=== PATIENT | male | born 1980 | race Caucasian/White ===

== ENCOUNTER 2017-12-06 21:28 | Emergency (ER) | payer BC ==
[2017-12-06 21:35] VITALS: BP 117/75; BMI 30.7
--- NOTE | 2017-12-06 22:19 | DR.GENAD ---
HPI - PCP Primary Care Physician: - HPI Comment HPI Comment: NO TRAUMA. WORSE TONIGHT. NO DYSURIA OR FEVER. - Complaint/Symptoms Chief Complaint Doctors Comments: RT GROIN PAIN RADIATING TO RT THIGH FOR 2 WEEKS. Chief Complaint:: RIGHT HIP PAIN RADIATES DOWN INTO GROIN AND THIGH. O/S A FEW WEEKS AGO, JUST GETTING WORSE. THE PAIN WAS INTENSE TONIGHT. - Nurses notes reviewed Nurses Notes Review: Yes - Source History Provided: Patient - Mode of Arrival Mode of Arrival: Ambulatory - Timing Onset of Chief Complaint: 11/21/17 Came on: Suddenly - Duration Duration: Constant Duration: Weeks - Severity Severity: Moderate PMH - PMH Past Medical History: Yes Past Medical History: Coronary Artery Disease, Dyslipidemia, NE Past Surgical History: Yes Surgical History: Angioplasty/Stents, Ortho Surgery Past Surgical History Comment: LEFT LEG SURGERY(PLATE AND SCREWS) - Family History History of Family Medical Conditions: No - Social History Does patient currently use any type of tobacco product: Yes Type of Tobacco Use: None Does any household member use tobacco: Yes Alcohol Use: None Do you use any recreational Drugs:: No Lives With: Spouse, Family Lives Where: Home - infectious screening Have you traveled outside the country in the last 6 months?: No Isolation: Standard ROS - Review of Systems Constitutional: No Symptoms Reported. negative: Chills, Fever Eyes: No Symptoms Reported ENTM: No Symptoms Reported. negative: Ear Discharge, Nose Discharge, Nose Congestion, Throat Pain Respiratoy: No Symptoms Reported. negative: Productive Cough, Short of Breath, Wheezing, Hemoptysis Cardiovascular: No Symptoms Reported. negative: Chest Pain Gastrointestinal/Abdominal: No Symptoms Reported. negative: Abdominal Pain, Nausea, Vomiting Genitourinary: Pain (RIGHT SCOTUM). negative: Dysuria, Frequency, Hematuria Neurological: Headache, Weakness, Dizziness Musculoskeletal: No Symptoms Reported, Back Pain, Joint Pain, Muscle Pain Integumentary: No Symptoms Reported Hematologic/Lymphatic: Easy Bruising Endocrine: No Symptoms Reported All Other Systems: Reviewed and Negative PE - Vital Signs Vitals: Temperature 98.0 F Pulse Rate 83 Respiratory Rate 18 Blood Pressure 117/75 O2 Sat by Pulse Oximetry 95 - General Limitations: No Limitations General Appearance: Alert - Head Head Exam: Normal Inspection - Eyes Eye exam: Normal Appearance - ENT ENT Exam: Normal External Ear Exam External Ear Exam: Normal External Inspection TM/Canal Exam: Bilateral Normal Nose Exam: Normal Nose Exam Mouth Exam: Normal Inspection Throat Exam: Tonsillar Erythema - Neck Neck Exam: Trachea Midline - Chest Chest Inspection: Symmetric Chest Wall Rise - Respiratory Respiratory Exam: Normal Lung Sounds Bilat, Accessory Muscle Use Respiratory Exam: Bilateral Clear to Auscultation - Cardiovascular Cardiovascular Exam: Regular Rate, Normal Rhythm, Normal Heart Sounds - Abdominal Exam Abdominal Exam: Normal Bowel Sounds, Soft. negative: Tenderness - Extremities Extremities Exam: Normal Inspection - Back Back Exam: Normal Inspection - Neurologic Neurological Exam: Alert, Oriented X3 - Skin Skin Exam: Normal Color MDM - Additional Information Additional Information Obtained From: Family - Differential Diagnosis Differential Diagnosis: RT TESTICULAR PAIN, TORSIN, HERNIA, STRAIN Course - Treatment Treatment: SEE ORDERS. - Education/Counseling Education/Counseling: Patient, Family, Education Educated On: Diagnosis, Needs for Follow Up ROR - Labs Reviewed Laboratory Results Reviewed?: Yes - XRAY XRAY Interpreted by: Radiologist XRAY Findings: REPORT DISCUSS WITH PATIENT. - Diagnosis Discharge Problem: Epididymitis, Right varicocele, Scrotal swelling Hydrocele Qualifiers: Hydrocele type: unspecified Qualified Code(s): N43.3 - Hydrocele, unspecified - Discharge Plan Disposition: HOME, SELF-CARE Condition: Stable Prescriptions: Ciprofloxacin HCl [CIPRO 500 MG TAB *] 500 mg PO Q12H #28 tab Ibuprofen [MOTRIN TAB 800 MG *] 800 mg PO Q8H PRN #30 tab PRN Reason: Pain/Inflammation - Follow ups/Referrals Follow ups/Referrals: NATTY KOHLER [CONSULTING PHYSICIAN] - 2 days MICHI NAVARRO [STAFF PHYSICIAN] - 2 days [facility],None [Primary Care Provider] - 2 days - Instructions Instructions: Scrotal Swelling, Epididymitis Additional Instructions: RETURN TO ED IF WORSE.
--- NOTE | 2017-12-07 00:28 | US ---
Ultrasound scrotum Indication: Right testicular pain Technique: Dynamic grayscale Doppler imaging through the scrotum. Findings: The right testis measures 3.7 x 2.4 x 2.6 cm. The left testis measures 4.3 x 1.8 x 3.0 cm. Doppler flow is normal. There is right greater than left hydroceles. Few echogenic foci are seen in t he right hydroceles. Few prominent venous structures are seen on the right. Epididymis appears enlarg ed and heterogeneous on the right. Left epididymis appears normal. Impression: 1. Enlarged right epididymis with echogenic reflectors seen in the adjacent hydrocele is compatible w ith acute epididymitis. 2. Dilated veins are concerning for varicoceles. This could be needed inflammation but abdominal lesi on needs to be excluded. Follow-up to document resolution and image the abdomen non emergently to exclude renal lesion. Reported By:
== END 2017-12-07 00:53 | disposition home or self-care (01) ==
LOC: ER 21:28
DX: I86.1 Scrotal varices (principal); N50.89 Other specified disorders of the male genital organs; N43.3 Hydrocele, unspecified
CPT/HCPCS: 76870; 99282; 99283